=== PATIENT | male | born 1945 | race Hispanic/Latino ===

== ENCOUNTER 2019-01-19 01:15 | Emergency (ER) | payer MEDICARE ==
[2019-01-19 01:57] LABS: BASOPHILS % (AUTO) 0.7 % (0.0-5.0); EOSINOPHILS % (AUTO) 3.3 % (0.0-8.0); HEMATOCRIT 41.1 % (42-54); LYMPHOCYTES % (AUTO) 28.3 % (21.0-51.0); MEAN CORPUSCULAR HEMOGLOBIN 34.1 pg (27.0-33.0); MEAN CORPUSCULAR HGB CONC 34.3 g/dL (32.0-36.0); MEAN CORPUSCULAR VOLUME 99.4 fL (79-99); MONOCYTES % (AUTO) 9.9 % (3.0-13.0); NEUTROPHILS % (AUTO) 57.8 % (40.0-77.0); PLATELET COUNT (AUTO) 237 K/uL (130-400); RED BLOOD CELL COUNT(AUTO) 4.14 MIL/uL (4.50-6.20); RED CELL DISTRIBUTION WIDTH 13.2 % (11.0-15.5); WHITE BLOOD COUNT (AUTO) 6.6 K/uL (4.8-10.8)
[2019-01-19 02:04] LABS: INR 1.03 (0.85-1.15); PARTIAL THROMBOPLASTIN TIME 29.8 SEC (26.3-35.5); PROTHROMBIN TIME 10.8 SEC (9.6-11.6)
[2019-01-19 02:29] LABS: ALBUMIN 3.6 g/dL (3.5-5.0); BILIRUBIN,TOTAL 0.5 mg/dL (0.2-1.0); CREATININE 0.9 mg/dL (0.5-1.5); POTASSIUM 3.9 mmol/L (3.5-5.1); TOTAL PROTEIN, SERUM 7.3 g/dL (6.0-8.3)
[2019-01-19] MEDS ORDERED: SODIUM CHLORIDE 0.9% 1000ML 1,000 ML IV ONE (03:37)
[2019-01-19 04:02] LABS: APPEARANCE,URINE Clear (CLEAR); BILIRUBIN,URINE Negative (NEGATIVE); COLOR,URINE Yellow (YELLOW); GLUCOSE, URINE (UA) Negative (NEGATIVE); KETONES,URINE Negative (NEGATIVE); LEUKOCYTE ESTERASE ,URINE Negative (NEGATIVE); NITRATE,URINE Negative (NEGATIVE); OCCULT BLOOD,URINE Negative (NEGATIVE); PH,URINE 5.5 (5.0-8.0); PROTEIN,URINE Negative (NEGATIVE)
== END 2019-01-19 04:55 | disposition home or self-care (01) ==
LOC: EDH 01:15
DX: E86.9 Volume depletion, unspecified (principal); R11.0 Nausea; R19.7 Diarrhea, unspecified; I10 Essential (primary) hypertension; R42 Dizziness and giddiness; Z90.49 Acquired absence of other specified parts of digestive tract
CPT/HCPCS: 36415; 71045; 80053; 81003; 82550; 83605; 84484; 85025; 85610; 85730; 93005; 96360; 96361; 99285; J7030

== ENCOUNTER 2022-07-21 11:37 | Inpatient (IN) | payer MEDICARE, OTHER ==
[~2022-07-21] VITALS: Ht 172.7 cm; Wt 93.9 kg
[2022-07-21] MEDS ORDERED: 0.9%NACL 1000ML 1,000 ML IV ONE ×2 (12:00→12:34)
[2022-07-21 12:01] LABS: BASOPHILS % (AUTO) 0.5 % (0.0-5.0); EOSINOPHILS % (AUTO) 2.1 % (0.0-8.0); HEMATOCRIT 44.6 % (42-54); LYMPHOCYTES % (AUTO) 26.4 % (21.0-51.0); MEAN CORPUSCULAR HEMOGLOBIN 32.3 pg (27.0-33.0); MEAN CORPUSCULAR HGB CONC 33.9 g/dL (32.0-36.0); MEAN CORPUSCULAR VOLUME 95.5 fL (79-99); MONOCYTES % (AUTO) 8.9 % (3.0-13.0); NEUTROPHILS % (AUTO) 61.8 % (40.0-77.0); PLATELET COUNT (AUTO) 203 K/uL (130-400); RED BLOOD CELL COUNT(AUTO) 4.67 MIL/uL (4.50-6.20); RED CELL DISTRIBUTION WIDTH 13.4 % (11.0-15.5); WHITE BLOOD COUNT (AUTO) 5.8 K/uL (4.8-10.8)
[2022-07-21] MEDS ORDERED: CELE100C97 PO (12:04)
[2022-07-21] MEDS ORDERED: PANT40TA54 PO (12:04)
[2022-07-21] MEDS ORDERED: TAMS-1 PO (12:04)
[2022-07-21] MEDS ORDERED: ERGO500093 PO (12:04)
[2022-07-21] MEDS ORDERED: LISI40TA9 PO (12:04)
[2022-07-21] MEDS ORDERED: ESCI-8 PO (12:04)
[2022-07-21 12:12] LABS: CREATININE 0.8 mg/dL (0.5-1.5); POTASSIUM 3.9 mmol/L (3.5-5.1)
[2022-07-21 12:14] LABS: INR 1.04 (0.85-1.15); PROTHROMBIN TIME 11.3 SEC (9.6-11.6)
[2022-07-21 12:15] LABS: PARTIAL THROMBOPLASTIN TIME 29.9 SEC (26.3-35.5)
[2022-07-21 12:26] LABS: ALBUMIN 3.9 g/dL (3.5-5.0); TOTAL PROTEIN, SERUM 7.2 g/dL (6.0-8.3)
[2022-07-21] MEDS ORDERED: IOHEXOL-350 75 ML VIAL IV ONE (12:29)
[2022-07-21] MEDS ORDERED: IOHEXOL-350 50ML VIAL IV ONE (12:29)
[2022-07-21] MEDS ORDERED: CLOPIDOGREL 75MG TAB PO ONE (12:30)
[2022-07-21] MEDS ORDERED: DILTIAZEM 25MG INJ IVP ONE (12:30)
[2022-07-21] MEDS ORDERED: CLOPIDOGREL 75MG TAB ONE (12:33)
[2022-07-21] MEDS ORDERED: ASPIRIN 81MG CHEW TAB ONE (12:34)
[2022-07-21] MEDS ORDERED: DILTIAZEM 50MG VIAL IV ONE (12:36)
[2022-07-21 12:47] LABS: B-TYPE NATRIURETIC PEPTIDE 153 pg/mL (0-100)
[2022-07-21 12:50] LABS: APPEARANCE,URINE CLEAR (CLEAR); BILIRUBIN,URINE NEGATIVE (NEGATIVE); COLOR,URINE LIGHT-YELLOW (YELLOW); GLUCOSE, URINE (UA) NEGATIVE (NEGATIVE); KETONES,URINE NEGATIVE (NEGATIVE); LEUKOCYTE ESTERASE ,URINE NEGATIVE Leu/uL (NEGATIVE); NITRATE,URINE NEGATIVE (NEGATIVE); OCCULT BLOOD,URINE NEGATIVE (NEGATIVE); PROTEIN,URINE NEGATIVE (NEGATIVE); UROBILINOGEN,URINE 0.2 mg/dL (0.2-1.0)
[2022-07-21] MEDS ORDERED: ACETAMINOPHEN 325 MG TAB PO PRN (13:00)
[2022-07-21] MEDS ORDERED: ONDANSETRON ODT 4MG TAB PO PRN (13:00)
[2022-07-21 14:31] VITALS: BP 136/71
[2022-07-21 16:05] VITALS: BP 139/67
[2022-07-21 18:48] VITALS: BP 143/71
[2022-07-21] MEDS: ATORVASTATIN 40 MG TABLET PO SCH (20:48)
[2022-07-21] MEDS: METOPROLOL TARTRATE 25 MG TAB PO SCH (20:48)
[2022-07-21 23:39] VITALS: BP 117/81
[2022-07-22 04:23] VITALS: BP 132/92
[2022-07-22 04:42] LABS: BASOPHILS % (AUTO) 0.4 % (0.0-5.0); EOSINOPHILS % (AUTO) 2.4 % (0.0-8.0); HEMATOCRIT 45.3 % (42-54); LYMPHOCYTES % (AUTO) 31.7 % (21.0-51.0); MEAN CORPUSCULAR HEMOGLOBIN 32.3 pg (27.0-33.0); MEAN CORPUSCULAR HGB CONC 33.6 g/dL (32.0-36.0); MEAN CORPUSCULAR VOLUME 96.2 fL (79-99); NEUTROPHILS % (AUTO) 56.2 % (40.0-77.0); PLATELET COUNT (AUTO) 213 K/uL (130-400); RED BLOOD CELL COUNT(AUTO) 4.71 MIL/uL (4.50-6.20); RED CELL DISTRIBUTION WIDTH 13.3 % (11.0-15.5); WHITE BLOOD COUNT (AUTO) 6.7 K/uL (4.8-10.8)
[2022-07-22 05:00] LABS: ALBUMIN 3.4 g/dL (3.5-5.0); CREATININE 0.9 mg/dL (0.5-1.5); POTASSIUM 3.6 mmol/L (3.5-5.1); TOTAL PROTEIN, SERUM 6.4 g/dL (6.0-8.3)
[2022-07-22 05:26] LABS: HEMOGLOBIN A1C 5.5 % (4.0-6.0)
[2022-07-22 05:58] LABS: B-TYPE NATRIURETIC PEPTIDE 535 pg/mL (0-100)
[2022-07-22 07:35] VITALS: BP 93/50
[2022-07-22] MEDS: METOPROLOL TARTRATE 25 MG TAB PO SCH ×2 (07:55→22:14)
[2022-07-22] MEDS: ASPIRIN 81MG CHEW TAB PO SCH (07:58)
[2022-07-22] MEDS ORDERED: ASPIRIN 325MG EC TAB PO SCH (09:00)
[2022-07-22] MEDS ORDERED: ENOXAPARIN SODIUM 100 MG/1 ML SQ SCH (10:22)
[2022-07-22 11:54] VITALS: BP 142/97
[2022-07-22 16:55] VITALS: BP 135/97
[2022-07-22] MEDS: THIAMINE HCL 100 MG TABLET PO SCH (18:45)
[2022-07-22 19:26] VITALS: BP_SYST 118; BP_SYST 131; BP_DIAS 51; BP_DIAS 89
[2022-07-22] MEDS ORDERED: POTASSIUM CHLORIDE 20MEQ/100ML 100 ML IV PRN (20:00)
[2022-07-22] MEDS ORDERED: POTASSIUM CHLORIDE 10% ELIXIR 20 MEQ/15 ML UDCUP PO PRN (20:00)
[2022-07-22] MEDS ORDERED: LIDOCAINE HCL-MPF 1% 2ML VIAL IV PRN (20:00)
[2022-07-22] MEDS ORDERED: KCL 20 MEQ ERTAB PO PRN (20:00)
[2022-07-22] MEDS ORDERED: APIXABAN 5 MG TABLET PO SCH (21:00)
[2022-07-22] MEDS ORDERED: CLOPIDOGREL 75MG TAB PO ONE (21:30)
[2022-07-22] MEDS: ATORVASTATIN 40 MG TABLET PO SCH (22:13)
[2022-07-22 23:46] VITALS: BP 114/84
[2022-07-23 04:02] LABS: HEMATOCRIT 47.2 % (42-54); MEAN CORPUSCULAR HEMOGLOBIN 32.4 pg (27.0-33.0); MEAN CORPUSCULAR HGB CONC 34.1 g/dL (32.0-36.0); RED BLOOD CELL COUNT(AUTO) 4.97 MIL/uL (4.50-6.20); RED CELL DISTRIBUTION WIDTH 13.2 % (11.0-15.5); WHITE BLOOD COUNT (AUTO) 7.7 K/uL (4.8-10.8)
[2022-07-23 04:13] LABS: MAGNESIUM 2.1 mg/dL (1.80-2.40)
[2022-07-23 04:30] VITALS: BP 139/83
[2022-07-23] MEDS: METOPROLOL TARTRATE 25 MG TAB PO SCH ×2 (07:25→21:01)
[2022-07-23] MEDS: ASPIRIN 81MG CHEW TAB PO SCH (07:25)
[2022-07-23 08:46] VITALS: BP 149/97
[2022-07-23 12:06] VITALS: BP 124/78
[2022-07-23] MEDS: THIAMINE HCL 100 MG TABLET PO SCH (16:36)
[2022-07-23 16:38] VITALS: BP 131/76
[2022-07-23 20:12] VITALS: BP_SYST 118; BP_SYST 128; BP_DIAS 76; BP_DIAS 94
[2022-07-23] MEDS ORDERED: CLOPIDOGREL 75MG TAB PO SCH (21:00)
[2022-07-23] MEDS: ATORVASTATIN 40 MG TABLET PO SCH (21:01)
[2022-07-24 00:03] VITALS: BP 118/79
[2022-07-24 03:03] VITALS: BP 116/86
[2022-07-24 07:00] VITALS: BP 126/78
[2022-07-24] MEDS: ASPIRIN 81MG CHEW TAB PO SCH (08:26)
[2022-07-24] MEDS: METOPROLOL TARTRATE 25 MG TAB PO SCH (08:26)
[2022-07-24 11:54] VITALS: BP 127/89
== END 2022-07-24 15:25 | disposition home or self-care (01) | DRG 65 ==
LOC: EDH 11:37 → EDHIP 12:24 → 2AH 14:17
PROVIDERS: ADMIT Internal Medicine Infectious Disease; ATTEND Internal Medicine Infectious Disease
DX: I63.511 Cerebral infarction due to unspecified occlusion or stenosis of right middle cerebral artery (principal); G81.94 Hemiplegia, unspecified affecting left nondominant side; I48.91 Unspecified atrial fibrillation; R29.702 NIHSS score 2; E66.9 Obesity, unspecified; F32.A Depression, unspecified; N40.0 Benign prostatic hyperplasia without lower urinary tract symptoms; Y90.9 Presence of alcohol in blood, level not specified; E78.5 Hyperlipidemia, unspecified; F10.10 Alcohol abuse, uncomplicated; I11.0 Hypertensive heart disease with heart failure; I50.9 Heart failure, unspecified; Z79.82 Long term (current) use of aspirin; Z90.49 Acquired absence of other specified parts of digestive tract; Z79.899 Other long term (current) drug therapy; Z68.31 Body mass index [BMI] 31.0-31.9, adult
CPT/HCPCS: 36415; 70450; 70496; 70498; 70544; 70551; 71045; 80048; 80053; 80061; 81003; 82948; 83036; 83721; 83735; 83880; 84484; 85025; 85027; 85610; 85730; 92522; 92610; 93005; 93306; 93356; 97039; 99291; G0378; J1650; J7030; Q9967

== ENCOUNTER 2022-09-16 20:09 | Emergency (ER) | payer OTHER ==
[~2022-09-16] VITALS: Ht 172.7 cm; Wt 96.2 kg
[~2022-09-16 20:09] MED LIST: CELE100C97 PO; ERGO500093 PO; ESCI-8 PO; LISI40TA9 PO; PANT40TA54 PO; TAMS-1 PO
[2022-09-16] MEDS ORDERED: ASPI-1197 PO (22:07)
[2022-09-16] MEDS ORDERED: LISI20TA24 PO (22:07)
[2022-09-16] MEDS ORDERED: APIX5TAB PO (22:09)
[2022-09-16] MEDS ORDERED: METO25TA6 PO (22:09)
[2022-09-16] MEDS ORDERED: OCTYL 2-CYANOACRYLATE 1 EACH TP ONE (22:33)
[2022-09-16 22:55] VITALS: BP 125/72
== END 2022-09-16 22:57 | disposition home or self-care (01) ==
LOC: EDH 20:09
DX: S00.83XA Contusion of other part of head, initial encounter (principal); I10 Essential (primary) hypertension; Z90.49 Acquired absence of other specified parts of digestive tract; Z79.01 Long term (current) use of anticoagulants; Z79.1 Long term (current) use of non-steroidal anti-inflammatories (NSAID); Z79.82 Long term (current) use of aspirin; Z79.899 Other long term (current) drug therapy; W01.10XA Fall on same level from slipping, tripping and stumbling with subsequent striking against unspecified object, initial encounter; Y93.89 Activity, other specified; Y92.89 Other specified places as the place of occurrence of the external cause; Y99.8 Other external cause status
CPT/HCPCS: 70450; 93005

== ENCOUNTER → 2023-03-10 | Outpatient (CLI) | payer OTHER ==
[~2023-03-10] MED LIST changes: +APIX5TAB PO; +ASPI-1197 PO; +CELE-146 PO; -CELE100C97 PO; +LISI20TA24 PO; +METO25TA6 PO; +REGADENOSON 0.4 MG/5 ML PF SYG IVP ONE
== END | disposition home or self-care (01) ==
LOC: SHCH 08:28
PROVIDERS: ATTEND Internal Medicine
DX: R94.39 Abnormal result of other cardiovascular function study (principal); I42.9 Cardiomyopathy, unspecified; I48.91 Unspecified atrial fibrillation; Z79.899 Other long term (current) drug therapy
CPT/HCPCS: 78452; 93017; J2785; A9500 ×2; 96374

== ENCOUNTER 2024-02-12 08:06 | Day surgery (SDC) | payer OTHER, MEDICARE ==
[2024-02-10 13:20] LABS: BASOPHILS # (AUTO) 0.05 K/uL (0.00-0.20); BASOPHILS % (AUTO) 0.6 % (0.0-5.0); EOSINOPHILS # (AUTO) 0.11 K/uL (0.00-0.70); EOSINOPHILS % (AUTO) 1.3 % (0.0-8.0); HEMATOCRIT 48.5 % (42-54); IMMATURE GRANULOCYTE ABSOLUTE 0.03 K/uL (0-1); LYMPHOCYTES # (AUTO) 1.9 K/uL (1.0-4.8); LYMPHOCYTES % (AUTO) 23.2 % (21.0-51.0); MEAN CORPUSCULAR HEMOGLOBIN 31.7 pg (27.0-33.0); MEAN CORPUSCULAR HGB CONC 32.6 g/dL (32.0-36.0); MEAN CORPUSCULAR VOLUME 97.4 fL (79-99); MONOCYTES # (AUTO) 0.6 K/uL (0.1-1.0); MONOCYTES % (AUTO) 7.5 % (3.0-13.0); NEUTROPHILS # (AUTO) 5.5 K/uL (1.8-7.7); PLATELET COUNT (AUTO) 277 K/uL (130-400); RED BLOOD CELL COUNT(AUTO) 4.98 MIL/uL (4.50-6.20); RED CELL DISTRIBUTION WIDTH 13.4 % (11.0-15.5); WHITE BLOOD COUNT (AUTO) 8.2 K/uL (4.8-10.8)
[2024-02-10 13:31] VITALS: BP 90/66; PULSE 62; RESP 15; TEMP 97.3
[2024-02-10 13:31] LABS: POTASSIUM 4.2 mmol/L (3.5-5.1)
[~2024-02-12] VITALS: Ht 172.7 cm; Wt 104.0 kg
[~2024-02-12 08:06] MED LIST changes: +BENZ-226 PO; -CELE-146 PO; +DAPA10TA PO; +FLUT1BLS3 IH; -LISI20TA24 PO; -LISI40TA9 PO; +METO-391 PO; -METO25TA6 PO; +MULT-1289 PO; -PANT40TA54 PO; -REGADENOSON 0.4 MG/5 ML PF SYG IVP ONE
[2024-02-12 08:15] VITALS: BP 126/80; PULSE 106; RESP 15; TEMP 97.4
[2024-02-12] MEDS ORDERED: 0.9%NACL 1000ML 1,000 ML IV ONE (08:28)
[2024-02-12] MEDS ORDERED: LIDOCAINE HCL 2% VISCOUS 15 ML UDCUP PO ONE (08:30)
[2024-02-12] MEDS ORDERED: LIDOCAINE HCL MPF 1% 5ML VIAL ONE (09:01)
[2024-02-12] MEDS ORDERED: proPOFol 10 MG/ML 20ML VIAL IV ONE (09:01)
[2024-02-12] MEDS ORDERED: phenylEPHRINE HCL 10 MG/ML 1ML VIAL IV ONE (09:02)
[2024-02-12 09:45] VITALS: BP 98/64; PULSE 78; RESP 16; TEMP 97.4
[2024-02-12 09:55] VITALS: BP 98/64; PULSE 74; RESP 16
[2024-02-12 10:05] VITALS: BP 98/64; PULSE 76; RESP 16
[2024-02-12 10:15] VITALS: BP 98/64; PULSE 76; RESP 17
[2024-02-12 10:25] VITALS: BP 98/64; PULSE 78; RESP 15; TEMP 97.5
== END 2024-02-12 11:00 | disposition home or self-care (01) ==
LOC: DAH 08:06
PROVIDERS: ATTEND Internal Medicine
DX: I48.0 Paroxysmal atrial fibrillation (principal); I08.1 Rheumatic disorders of both mitral and tricuspid valves; I48.20 Chronic atrial fibrillation, unspecified; I44.4 Left anterior fascicular block; I10 Essential (primary) hypertension; I25.2 Old myocardial infarction; Z79.01 Long term (current) use of anticoagulants; Z79.82 Long term (current) use of aspirin; Z79.899 Other long term (current) drug therapy
CPT/HCPCS: 80048; 85025; 36415; 93005 ×3; 92960; 93325; 93312; J7030; J2704; J2371; J3490; A4620; A4215; A4223 ×3; A4657; A7002; A4222; A4221; A4663; A4216; A4606

== ENCOUNTER → 2024-06-18 | Outpatient (CLI) | payer OTHER, MEDICARE | END | disposition home or self-care (01) | LOC: SHCH 09:57 | PROVIDERS: ATTEND Internal Medicine | DX: I42.0 Dilated cardiomyopathy (principal) | CPT/HCPCS: 93308 ==

== ENCOUNTER → 2024-08-03 | Outpatient (CLI) | payer OTHER, MEDICARE ==
[2024-08-03 16:30] LABS: DIGOXIN 0.2 ng/mL (0.50-2.00); POTASSIUM 4.1 mmol/L (3.5-5.1)
== END | disposition home or self-care (01) ==
LOC: LAB 11:48
PROVIDERS: ATTEND Internal Medicine
DX: I25.10 Atherosclerotic heart disease of native coronary artery without angina pectoris (principal)
CPT/HCPCS: 36415; 80048; 80162

== ENCOUNTER → 2024-08-18 | Outpatient (CLI) | payer OTHER, MEDICARE ==
[~2024-08-18] MED LIST changes: -TAMS-1 PO; +TAMS-55 PO
[2024-08-18 12:08] LABS: CREATININE 0.9 mg/dL (0.5-1.3); DIGOXIN 0.76 ng/mL (0.50-2.00); POTASSIUM 4.2 mmol/L (3.5-5.1)
== END | disposition home or self-care (01) ==
LOC: LAB 10:14
PROVIDERS: ATTEND Internal Medicine
DX: I48.0 Paroxysmal atrial fibrillation (principal); Z79.01 Long term (current) use of anticoagulants
CPT/HCPCS: 36415; 80048; 80162

== ENCOUNTER 2024-10-08 09:49 | Emergency (ER) | payer OTHER, MEDICAID ==
[~2024-10-08] VITALS: Ht 172.7 cm; Wt 106.6 kg
--- NOTE | 2024-10-08 10:41 | EKG ---
[facility] Test Date: 2024-10-08 Test Time: 10:32:35 Pat Name: HARRY SHARMA Department: [facility] Room: Gender: M Sample Steamer: [id number] : 1945 Requested By: NICKOLAS BIRD Order Number: [id number] Reading MD: Diogo Smith Measurements Intervals [place] Rate: 105 P: 0 OR: 0 QRS: -73 QRSD: 85 T: 19 QT: 292 QTc: 386 Interpretive Statements Atrial fibrillation Left anterior fascicular block Compared to ECG 02/12/2024 09:32:13 Left anterior fascicular block now present Sinus rhythm no longer present Left-axis deviation no longer present Electronically Signed On 10-11-2024 22:12:35 CDT by Diogo Smith Please click the below link to view image of tracing.
[2024-10-08 10:55] VITALS: PULSE 84; RESP 18
[2024-10-08] MEDS: IpraTROPium/alBUTERol SULFATE 3 ML SOLUTION IH ONE ×2 (10:55→14:15)
[2024-10-08 10:57] LABS: BASOPHILS # (AUTO) 0.02 K/uL (0.00-0.20); BASOPHILS % (AUTO) 0.2 % (0.0-5.0); EOSINOPHILS # (AUTO) 0.02 K/uL (0.00-0.70); EOSINOPHILS % (AUTO) 0.2 % (0.0-8.0); HEMATOCRIT 45.7 % (42-54); IMMATURE GRANULOCYTE ABSOLUTE 0.02 K/uL (0-1); LYMPHOCYTES # (AUTO) 1.3 K/uL (1.0-4.8); LYMPHOCYTES % (AUTO) 14.5 % (21.0-51.0); MEAN CORPUSCULAR HEMOGLOBIN 32.4 pg (27.0-33.0); MEAN CORPUSCULAR HGB CONC 33.7 g/dL (32.0-36.0); MONOCYTES # (AUTO) 0.9 K/uL (0.1-1.0); MONOCYTES % (AUTO) 10.3 % (3.0-13.0); NEUTROPHILS # (AUTO) 6.7 K/uL (1.8-7.7); NEUTROPHILS % (AUTO) 74.6 % (40.0-77.0); PLATELET COUNT (AUTO) 203 K/uL (130-400); RED BLOOD CELL COUNT(AUTO) 4.76 MIL/uL (4.50-6.20); RED CELL DISTRIBUTION WIDTH 13.5 % (11.0-15.5)
[2024-10-08 11:04] LABS: CREATININE 0.9 mg/dL (0.5-1.3); POTASSIUM 3.9 mmol/L (3.5-5.1)
[2024-10-08 11:09] LABS: RAPID GROUP A STREP negative (NEGATIVE)
[2024-10-08 11:19] LABS: COVID19 (SARS ANTIGEN RAPID) PRESUMPTIVE NEGATIVE (NEGATIVE); INFLUENZA TYPE A Negative For Type A (NEGATIVE); INFLUENZA TYPE B Negative For Type B (NEGATIVE)
[2024-10-08 11:20] LABS: B-TYPE NATRIURETIC PEPTIDE 328 pg/mL (0-100)
--- NOTE | 2024-10-08 11:30 | ERN ---
General Chief Complaint: Congestion Stated Complaint: COUGH Time Seen by MD: 10:20 Time Seen by Midlevel: 10:20 Source: patient History of Present Illness Initial Comments 79-year-old male presents to the emergency department due to SOB. Daughter states patient has been having cough, congestion, generalized body weakness, body aches onset four days. Patient is currently taking doxycycline prescribed by PCP. PMHx AFib, HTN, enlarged prostate, previous stroke Allergies: Coded Allergies: No Known Drug Allergies (Unverified Allergy, Unknown, 01/19/19) Home Meds Active Scripts Albuterol Sulfate (Ventolin Hfa/Proventil Hfa/Proair Hfa) 90 Mcg Puff, 1 PUFF IH Q6HPRN PRN for SHORTNESS OF BREATH for 5 Days, #1 INH 0 Refills PHARMACY TO DISPENSE 1 INHALER FOR USE Prov:NICKOLAS BIRD 10/08/24 Levofloxacin (Levofloxacin) 750 Mg Tablet, 1 TAB PO DAILY for 5 Days, #5 TAB 0 Refills Prov:NICKOLAS BIRD 10/08/24 Reported Medications Fluticasone/Umeclidin/Vilanter (Trelegy Ellipta 100-62.5-25) 100-62.5 Blst.w.dev, 1 EACH IH DAILY 02/10/24 Mv-Min/Folic/K1/Lycopen/Lutein (Centrum Silver Men Tablet) 300 Mcg-60 Mcg-600 Mcg-300 Mcg Tablet, 1 EACH PO DAILY, TAB 02/10/24 Benzonatate (Benzonatate) 100 Mg Capsule, 100 MG PO TID PRN for COUGH, CAP 02/10/24 Dapagliflozin Propanediol (Farxiga) 10 Mg Tablet, 10 MG PO DAILY, TAB 02/10/24 Metoprolol Succinate (Metoprolol Succinate) 50 Mg Tab.er.24h, 50 MG PO DAILY, TAB 02/10/24 Apixaban (Eliquis) 5 Mg Tablet, 5 MG PO BID, TAB 09/16/22 Aspirin (Aspirin) 81 Mg Tab.chew, 81 MG PO DAILY, TAB.CHEW 09/16/22 Ergocalciferol (Vitamin D2) (Vitamin D2) 1,250 Mcg Capsule, 1250 MCG PO QWEEK, CAP 07/21/22 Escitalopram Oxalate (Escitalopram Oxalate) 10 Mg Tablet, 10 MG PO DAILY, TAB 07/21/22 Tamsulosin HCl (Flomax) 0.4 Mg Cap.er.24h, 0.4 MG PO DAILY, ISABEL. 07/21/22 Past Medical History Past Medical History: A-Fib, Hypertension, Stroke Past Surgical History: Appendectomy Surgical History Other: BILATERAL KNEE Social History Social History: ETOH, Lives with family ROS Dictation Constitutional: Positive for body aches, generalized weakness Negative for fever,chills, and weight loss Eyes: Negative for injury, pain,redness, and discharge ENT: Negative for injury,pain or swelling Cardiovascular: Negative for chest pain, palpitations, and edema Respiratory: Positive for cough, shortness of breath Negative for wheezing Abdomen/GI: Negative for abdominal pain, nausea, vomiting, diarrhea, and constipation Back: Negative for injury and pain : Negative for painful urination, bleeding or discharge MS/Extremity: Negative for injury and deformity Skin: Negative for rash, and discoloration Neuro: Negative for headache, weakness, numbness, tingling, and seizure Psych: Negative for suicide ideation, homicidal ideation, and hallucinations Physical Exam Physical Exam Dictation General: awake, alert, no acute distress Head/Face: Normocephalic, atraumatic Eyes: PERRL, EOMI, normal conjunctiva ENT: oral cavity clear, oral mucosa moist Neck: Supple, normal range of motion Cardiovascular: RRR, normal S1/S2 Respiratory: CTAB, no respiratory distress, wheezing auscultated bilaterally Abdomen: Soft, non-tender, non-distended Skin: Warm, dry, normal turgor, no rash MS/Extremity: Pulses equal, no cyanosis, neurovascular intact, FROM Neuro: COAx4, GCS 15, strength 5/5, CN 2-12 intact, normal cerebellar exam, normal gait Psych: Normal behavior, mood, and affect normal Results Laboratory and Microbiology Lab and Micro Result Laboratory Tests Test 10/08/24 10:48 10/08/24 11:36 White Blood Count 9.0 K/uL (4.8-10.8) Red Blood Count 4.76 MIL/uL (4.50-6.20) Hemoglobin 15.4 g/dL (14.0-18.0) Hematocrit 45.7 % (42-54) Mean Corpuscular Volume 96.0 fL (79-99) Mean Corpuscular Hemoglobin 32.4 pg (27.0-33.0) Mean Corpuscular Hemoglobin Concent 33.7 g/dL (32.0-36.0) Red Cell Distribution Width 13.5 % (11.0-15.5) Platelet Count 203 K/uL (130-400) Mean Platelet Volume 9.8 fL (7.5-10.5) Immature Granulocyte % (Auto) 0.2 % (0-1) Neutrophils (%) (Auto) 74.6 % (40.0-77.0) Lymphocytes (%) (Auto) 14.5 % (21.0-51.0) L Monocytes (%) (Auto) 10.3 % (3.0-13.0) Eosinophils (%) (Auto) 0.2 % (0.0-8.0) Basophils (%) (Auto) 0.2 % (0.0-5.0) Neutrophils # (Auto) 6.7 K/uL (1.8-7.7) Lymphocytes # (Auto) 1.3 K/uL (1.0-4.8) Monocytes # (Auto) 0.9 K/uL (0.1-1.0) Eosinophils # (Auto) 0.02 K/uL (0.00-0.70) Basophils # (Auto) 0.02 K/uL (0.00-0.20) Absolute Immature Granulocyte (auto 0.02 K/uL (0-1) Nucleated Red Blood Cells 0.0 % (0.0-0.19) Sodium Level 139 mmol/L (136-145) Potassium Level 3.9 mmol/L (3.5-5.1) Chloride Level 102 mmol/L (101-111) Carbon Dioxide Level 30 mmol/L (21-32) Blood Urea Nitrogen 9 mg/dL (7-18) Creatinine 0.9 mg/dL (0.5-1.3) Glomerular Filtration Rate Calc 86 mL/min (>90) Random Glucose 95 mg/dL (70-105) Total Calcium 8.4 mg/dL (8.5-10.1) L Troponin I High Sensitivity 13 ng/L (4-75) B-Type Natriuretic Peptide 328 pg/mL (0-100) H Influenza Type A Antigen Negative For Type A Influenza Type B Antigen Negative For Type B SARS-CoV-2 Antigen (Rapid) PRESUMPTIVE NEGATIVE Group A Streptococcus Rapid negative (NEGATIVE) Urine Color LIGHT-YELLOW (YELLOW) Urine Appearance CLEAR (CLEAR) Urine pH 5.5 (5.0-8.0) Urine Specific [place] 1.011 (1.001-1.031) Urine Protein NEGATIVE mg/dL (NEGATIVE) Urine Glucose (UA) >=1000 mg/dL (NEGATIVE) H Urine Ketones NEGATIVE mg/dL (NEGATIVE) Urine Occult Blood NEGATIVE (NEGATIVE) Urine Nitrate NEGATIVE (NEGATIVE) Urine Bilirubin NEGATIVE mg/dL (NEGATIVE) Urine Urobilinogen 0.2 mg/dL (0.2-1.0) Urine Leukocyte Esterase NEGATIVE [place]/uL Urine RBC 0-1 /HPF (0-1) Urine WBC 0-1 /HPF (0-1) Urine Squamous Epithelial Cells RARE /HPF (0-2) Urine Bacteria None /HPF (None Seen) Labs Reviewed?: Yes EKG/XRAY/US/CT/MRI X-RAY Comment REASON: Cough, SOB ORDERING PHYSICIAN: NICKOLAS BIRD PROCEDURE: CXR1VW - CHEST 1VW CHEST 1VW HISTORY: Cough and shortness of breath COMPARISON: 07/21/2022 FINDINGS: A frontal projection of the chest was obtained. Mild right lower lung pulmonary infiltrates are seen. The heart is borderline enlarged. Degenerative changes are seen. Prominent interstitial markings are seen. No evidence of aortic calcification is seen. IMPRESSION: 1. Mild right lower lung pulmonary infiltrates are seen. DICTATED BY: DEISY VILLALOBOS MD DATE: 10/08/24 1144 MDM MDM: Differential diagnosis: URI, pneumonia, viral illness Rationale: 79-year-old male presents to the emergency department due to SOB. Daughter states patient has been having cough, congestion, generalized body weakness, body aches onset four days. Patient is currently taking doxycycline prescribed by PCP. PMHx AFib, HTN, enlarged prostate, previous stroke Labs obtained CBC within normal limits. BNP 328. UA negative for urinary tract. Serology influenza, SARs, strep negative. Chest x-ray indicates a mild right lower lung pulmonary infiltrates noted. Case was discussed with hospitalist Dr. Henderson recommended patient to be discharged, switching antibiotic for levofloxacin, and following up outpatient with PCP. Patient and family members were educated on findings, diagnosis and hospitalist decision for discharge. Patient and family member verbalized understanding. There are no social concerns with this patient. I independently interpreted the test that were performed, results were reviewed by me and considered findings on radiology if ordered. Medical management and examination interpretation discussions were had by me with other qualified healthcare professionals as indicated for the patient's care. ED Course Orders Procedure Category Date Status Time Cbc With Differential LAB 10/08/24 Complete 10:25 Basic Metabolic Panel LAB 10/08/24 Complete 10:25 B-Type Natriuretic LAB 10/08/24 Complete Peptide 10:25 Troponin I High LAB 10/08/24 Complete Sensitivity 10:25 12 Lead Ekg Tracing- EKG 10/08/24 Complete Technical 10:25 Covid19 (Sars Antigen LAB 10/08/24 Complete Rapid) 10:25 Influenza Type A & B, LAB 10/08/24 Complete Rapid 10:25 Rapid (Group A Strep) LAB 10/08/24 Complete 10:25 Chest 1vw RAD 10/08/24 Resulted 10:25 Ipratropium/Albuterol PHA 10/08/24 Complete Neb (Duoneb) 11:00 Urinalysis LAB 10/08/24 Complete W/Microscopic 12:19 Ipratropium/Albuterol PHA 10/08/24 Complete Neb (Duoneb) 13:00 Ceftriaxone 1g Vial PHA 10/08/24 Complete (Rocephine 1g Inj) 13:00 Current Medications Medications (Trade) Dose Ordered Sig/Becky Route PRN Reason Start Time Stop Time Status Last Admin Dose Admin Albuterol (DUOneb) 1 udvial ONCE ONCE IH 10/08/24 11:00 10/08/24 11:01 DC 10/08/24 10:55 Albuterol (DUOneb) 1 udvial ONCE ONCE IH 10/08/24 13:00 10/08/24 13:01 DC 10/08/24 14:15 Ceftriaxone Sodium (ROCEphine 1G INJ) 1 gm ONCE ONCE IVPB 10/08/24 13:00 10/08/24 13:01 DC 10/08/24 13:11 Vital Signs Date Time Temp Pulse Resp B/P (MAP) Pulse Ox O2 Delivery O2 Flow Rate FiO2 10/08/24 14:30 99.0 96 18 111/74 96 Room Air* 0 21 10/08/24 14:16 88 18 10/08/24 13:08 99.9 99 18 116/70 95 Room Air* 0 21 10/08/24 12:00 99.9 96 20 109/72 96 Room Air* 0 10/08/24 10:55 84 18 10/08/24 10:20 98.4 92 16 131/82 92 Room Air* 0 10/08/24 09:53 98.4 92 16 131/82 91 Room Air 0 DX & DISP Disposition: Discharge Departure Impression: Primary Impression: URI (upper respiratory infection) Condition: Stable Scripts Albuterol Sulfate (Ventolin Hfa/Proventil Hfa/Proair Hfa) 90 Mcg Puff 1 PUFF IH Q6HPRN PRN for SHORTNESS OF BREATH for 5 Days, #1 INH 0 Refills PHARMACY TO DISPENSE 1 INHALER FOR USE Prov: NICKOLAS BIRD 10/08/24 Levofloxacin (Levofloxacin) 750 Mg Tablet 1 TAB PO DAILY for 5 Days, #5 TAB 0 Refills Prov: NICKOLAS BIRD 10/08/24 Additional Instructions: Discharge home. Rest. Follow up with primary care DrBenny in 24 hours. Return to the ER for any acute changes or worsening symptoms. If any medications were prescribed take as directed. Okay to continue home medications unless otherwise discussed during your visit in the emergency room today. Patient was also advised to follow-up with primary care physician in 1 to 2 days for continued monitoring. Referrals: SEKOU GRIFFIN MD (PCP) I performed the substantive portion of the visit. I have reviewed and personally made and approve the management plan that is documented in the notes by myself or the JOSE. I acknowledge full responsibility for the patient's management plan. NICKOLAS BIRD October 08, 2024 11:30
--- NOTE | 2024-10-08 11:47 | HMCIMG ---
CHEST 1VW HISTORY: Cough and shortness of breath COMPARISON: 07/21/2022 FINDINGS: A frontal projection of the chest was obtained. Mild right lower lung pulmonary infiltrates are seen. The heart is borderline enlarged. Degenerative changes are seen. Prominent interstitial markings are seen. No evidence of aortic calcification is seen. IMPRESSION: 1. Mild right lower lung pulmonary infiltrates are seen.
[2024-10-08] MEDS: cefTRIAXone 1G VIAL IVPB ONE (13:11)
[2024-10-08] MEDS ORDERED: LEVO750T90 PO (13:39)
[2024-10-08 13:40] LABS: APPEARANCE,URINE CLEAR (CLEAR); BILIRUBIN,URINE NEGATIVE (NEGATIVE); COLOR,URINE LIGHT-YELLOW (YELLOW); GLUCOSE, URINE (UA) >=1000 mg/dL (NEGATIVE); KETONES,URINE NEGATIVE (NEGATIVE); LEUKOCYTE ESTERASE ,URINE NEGATIVE Leu/uL (NEGATIVE); MUCUS,URINE RARE LPF (None Seen); NITRATE,URINE NEGATIVE (NEGATIVE); OCCULT BLOOD,URINE NEGATIVE (NEGATIVE); PH,URINE 5.5 (5.0-8.0); PROTEIN,URINE NEGATIVE (NEGATIVE); RBC,URINE 0-1 /HPF (0-1); SQUAMOUS EPITHELIAL CELL,UR RARE /HPF (0-2); UROBILINOGEN,URINE 0.2 mg/dL (0.2-1.0); WBC,URINE 0-1 /HPF (0-1)
[2024-10-08 14:16] VITALS: PULSE 88; RESP 18
[2024-10-08 14:30] VITALS: BP 111/74; PULSE 96; RESP 18; TEMP 99; O2SAT 96
--- NOTE | 2024-10-08 14:55 | NUR ---
PT'S DAUGHTER RECEIVED THE DISCHARGE DOCUMENTS.PRESCROPTION SENT TO PHARMACY.IV REMOVED.EDUCATED ON ANTIBIOTIC THERAPY.
[2024-10-08] MEDS ORDERED: ALBUHFA IH (15:48)
== END 2024-10-08 14:55 | disposition home or self-care (01) ==
LOC: EDH 09:49
DX: J06.9 Acute upper respiratory infection, unspecified (principal); Z20.822 Contact with and (suspected) exposure to COVID-19; I10 Essential (primary) hypertension; I48.91 Unspecified atrial fibrillation; Z79.01 Long term (current) use of anticoagulants; Z79.2 Long term (current) use of antibiotics; Z79.82 Long term (current) use of aspirin; Z79.84 Long term (current) use of oral hypoglycemic drugs; Z79.899 Other long term (current) drug therapy; Z86.73 Personal history of transient ischemic attack (TIA), and cerebral infarction without residual deficits; Z90.49 Acquired absence of other specified parts of digestive tract
CPT/HCPCS: 99285; 96374; 71045; 87426; 84484; 80048; 83880; 85025; 87880; 87804 ×2; 81001; 36415; 93005; 94640; J0696